=== PATIENT | female | born 2000 | race Caucasian/White ===

== ENCOUNTER 2023-08-13 20:31 | Inpatient (IN) | payer BC, SELFPAY ==
[2023-08-13] MEDS ORDERED: Diazepam 10 MG/2 ML SYRINGE ONE ×2 (21:28→22:12)
[2023-08-13 21:32] LABS: #Basophils 0.1 thou/uL (0.0-0.2); #Eosinphils 0.2 thou/uL (0.0-0.7); #Monocytes 0.8 thou/uL (0.11-0.59); #Neutrophils 8.3 thou/uL (1.40-6.50); %Basophils 0.6 % (0.0-1.0); %Eosinophils 1.9 % (0.0-10.0); %Lymphocytes 16.6 % (21.0-51.0); %Monocytes 7.1 % (0.0-10.0); %Neutrophils 73.5 % (42.0-75.0); Hematocrit 40.9 % (36.0-47.0); Hemoglobin 13.9 g/dL (12.0-16.0); Mean Corpuscular Hemoglobin 30.8 pg (27.0-31.0); Mean Corpuscular Volume 90.7 fl (78.0-98.0); Platelet Count 303 10x3/uL (130-400); RBC Distribution Width 13.2 % (11.5-14.5); Red Blood Cell (RBC) Count 4.51 mill/uL (4.20-5.40); White Blood Cell (WBC) Count 11.3 10x3/uL (4.8-10.8)
[2023-08-13] MEDS ORDERED: Promethazine 25 MG TAB ONE ×2 (21:34→21:43)
[2023-08-13 21:57] LABS: ALT (SGPT) 11 U/L (8-55); AST (SGOT) 13 U/L (5-34); Albumin 3.9 g/dL (3.5-5.0); Alkaline Phosphatase 43 U/L (40-110); Anion Gap 10 mmol/L (10-20); BUN (Urea Nitrogen) 14 mg/dL (7.0-18.7); Bilirubin, Total 0.3 mg/dL (0.2-1.2); Calc. Creatinine Clearance 0 mL/min (70-130); Calcium 8.6 mg/dL (7.8-10.44); Carbon Dioxide 23 mmol/L (22-29); Chloride 111 mmol/L (98-107); Estimated GFR 126; Globulin 2.7 g/dL (2.4-3.5); Glucose 117 mg/dL (70-105); Lipase 55 U/L (8-78); Potassium 3.5 mmol/L (3.5-5.1); Protein, Total 6.6 g/dL (6.0-8.3); Sodium 140 mmol/L (136-145)
[2023-08-13] MEDS ORDERED: Midodrine HCl 5 MG TAB PO SCH (22:00)
[2023-08-13] MEDS ORDERED: Baclofen 10 MG TAB PO SCH (22:45)
[2023-08-13] MEDS ORDERED: Pantoprazole 40 MG VIAL ONE (23:36)
[2023-08-14 01:26] LABS: BHCG - Serum Negative (NEGATIVE); Pregs Control Background? CLEAR/WHITE (CLR/WHITE); Pregs Control Bar Appear? YES (CONTROL BAR)
[2023-08-14] MEDS ORDERED: Acetaminophen 500 MG TAB ONE (02:42)
[2023-08-14 03:58] LABS: Troponin I Less than 0.010 ng/mL (< 0.028)
[2023-08-14 05:33] LABS: Troponin I Less than 0.010 ng/mL (< 0.028)
[2023-08-14] MEDS: Lactated Ringer's 1,000 ML IV SCH ×2 (06:30→12:30)
[2023-08-14] MEDS ORDERED: Acetaminophen 325 MG TAB PO PRN (08:08)
[2023-08-14] MEDS ORDERED: Albuterol 2.5 MG (3 mL) NEB NEB PRN (08:08)
[2023-08-14] MEDS ORDERED: Baclofen 10 MG TAB PO PRN (08:08)
[2023-08-14] MEDS ORDERED: Midodrine HCl 5 MG TAB PO SCH ×4 (09:00→21:00)
[2023-08-14] MEDS ORDERED: Fludrocortisone Acetate 0.1 MG TAB PO SCH ×2 (09:00→12:00)
[2023-08-14 09:01] LABS: Magnesium 1.8 mg/dL (1.6-2.6); Phosphorus 2.8 mg/dL (2.3-4.7)
[2023-08-14 09:44] VITALS: BMI 32.6
[2023-08-14] MEDS ORDERED: Diazepam 5 MG TAB PO PRN (11:25)
[2023-08-14] MEDS: Escitalopram Oxalate 10 mg Tablet PO SCH (11:26)
[2023-08-14] MEDS ORDERED: Diazepam 5 MG TAB ONE (14:15)
[2023-08-14] MEDS ORDERED: Ondansetron PF 4 MG/2 ML Vial ONE (16:11)
[2023-08-14] MEDS: Ondansetron PF 4 MG/2 ML Vial IVP PRN (16:15)
[2023-08-14] MEDS: Baclofen 10 MG TAB PO PRN (20:51)
[2023-08-15] MEDS: Fludrocortisone Acetate 0.1 MG TAB PO SCH ×2 (05:23→09:18)
[2023-08-15] MEDS ORDERED: Midodrine HCl 5 MG TAB PO SCH ×4 (06:00→18:00)
[2023-08-15] MEDS: Escitalopram Oxalate 10 mg Tablet PO SCH (09:17)
[2023-08-15] MEDS: Baclofen 10 MG TAB PO PRN (09:18)
[2023-08-15 11:36] LABS: Bilirubin Negative (Negative); Blood, Urine Negative (Negative); Glucose, Urine (Dipstick) Negative (Negative); Ketone, Urine Negative (Negative); Leukocyte Small (Negative); Nitrite Negative (Negative); Protein, Urine (Dipstick) Negative (Neg-Trace); Specific Gravity, Urine 1.015 (1.005-1.030); Urobilinogen 0.2 mg/dL (Less than 2)
[2023-08-15 11:37] LABS: Clarity Hazy (Clear)
[2023-08-15 11:41] LABS: Bacteria/HPF Rare-Few HPF (None Seen); RBC/HPF None Seen HPF (0-3); WBC/HPF 0-3 HPF (0-3)
[2023-08-15] MEDS ORDERED: Baclofen 10 MG TAB PO SCH (12:30)
[2023-08-15] MEDS: Baclofen 10 MG TAB PO SCH ×2 (18:04→18:27)
[2023-08-15] MEDS: Midodrine HCl 5 MG TAB PO SCH (18:26)
[2023-08-15] MEDS: Gabapentin 300 MG CAP PO PRN (20:53)
[2023-08-15] MEDS: Ondansetron PF 4 MG/2 ML Vial IVP PRN (22:33)
[2023-08-16] MEDS ORDERED: Barium Sulfate 96% 176 GM BOT (xray ONLY) PO ONE (06:40)
[2023-08-16] MEDS ORDERED: E-Z-HD 98% W/W 340GM BOT (x-ray ONLY) ONE (06:40)
[2023-08-16] MEDS ORDERED: Lidocaine 4% Patch TD SCH (12:45)
[2023-08-16] MEDS: Simethicone Chewable 80 MG TAB PO SCH ×3 (15:10→23:02)
[2023-08-16] MEDS: Midodrine HCl 5 MG TAB PO SCH ×4 (15:10→18:16)
[2023-08-16] MEDS: Fludrocortisone Acetate 0.1 MG TAB PO SCH ×2 (15:52→15:53)
[2023-08-16] MEDS: Baclofen 10 MG TAB PO SCH ×3 (15:52→20:29)
[2023-08-16] MEDS: Escitalopram Oxalate 10 mg Tablet PO SCH (15:52)
[2023-08-16] MEDS: Ondansetron PF 4 MG/2 ML Vial IVP PRN (20:53)
[2023-08-16] MEDS ORDERED: Transdermal Patch Removal TOP SCH (21:00)
[2023-08-16] MEDS: Gabapentin 300 MG CAP PO PRN (21:45)
[2023-08-17] MEDS: Fludrocortisone Acetate 0.1 MG TAB PO SCH ×2 (06:12→09:22)
[2023-08-17] MEDS: Midodrine HCl 5 MG TAB PO SCH ×3 (06:12→14:02)
[2023-08-17 06:20] LABS: Anion Gap 11 mmol/L (10-20); BUN (Urea Nitrogen) 11 mg/dL (7.0-18.7); Calc. Creatinine Clearance 214 mL/min (70-130); Calcium 8.9 mg/dL (7.8-10.44); Carbon Dioxide 24 mmol/L (22-29); Chloride 108 mmol/L (98-107); Estimated GFR 128; Glucose 87 mg/dL (70-105); Potassium 3.8 mmol/L (3.5-5.1); Sodium 139 mmol/L (136-145)
[2023-08-17 06:38] LABS: Free T4 (Free Thyroxine) 0.95 ng/dL (0.70-1.48)
[2023-08-17] MEDS ORDERED: Lidocaine 4% Patch TD SCH (09:00)
[2023-08-17] MEDS: Escitalopram Oxalate 10 mg Tablet PO SCH (09:19)
[2023-08-17] MEDS: Baclofen 10 MG TAB PO SCH ×2 (09:20→15:33)
[2023-08-17] MEDS: Simethicone Chewable 80 MG TAB PO SCH ×2 (09:23→14:02)
[2023-08-17] MEDS ORDERED: Cosyntropin 250 MCG VIAL SLOW IVP SCH (11:45)
[2023-08-17 15:03] VITALS: BP 108/52; TEMP 98.2
== END 2023-08-17 16:46 | disposition home or self-care (01) | DRG 93 ==
LOC: ERS 20:31 → 2SW 08-14 02:30 → ERHOLD 08-14 02:48 → 2SW 08-14 18:21 → OBSVTOIN 08-16 12:40
PROVIDERS: ADMIT Internal Medicine; ATTEND Family Medicine
PROC: 4A00X4Z Measurement of Central Nervous Electrical Activity, External Approach (ICD-10-PCS; principal; 2023-08-14)
DX: G90.1 Familial dysautonomia [Riley-Day] (principal); G90.4 Autonomic dysreflexia; Z91.040 Latex allergy status; F45.8 Other somatoform disorders; Z88.8 Allergy status to other drugs, medicaments and biological substances; Z79.899 Other long term (current) drug therapy; J45.909 Unspecified asthma, uncomplicated; Z91.048 Other nonmedicinal substance allergy status
CPT/HCPCS: 36415; 70551; 71045; 72141; 74220; 80048; 80053; 81001; 82533; 83690; 83735; 84100; 84439; 84443; 84481; 84484; 84703; 85025; 93005; 93306; 95711; 95819; 96361; 96365; 96366; 96375; 96376; C9113; G0378; J2405; J3360; J7120; Q0169